=== PATIENT | male | born 1995 ===

== ENCOUNTER → 2016-03-19 | Outpatient (CLI) | payer BC ==
--- NOTE | 2016-03-19 13:43 | DX ---
Left ankle - 3 views Indication: Fell skateboarding. Technique: AP, mortise, and lateral views. Comparison: None Findings: The bones are anatomically aligned. No acute fracture or derangement of the mortise. Latera l soft tissue swelling. Impression: Lateral ankle sprain. No acute fracture.
== END ==
LOC: BMCIMAGING 13:16
PROVIDERS: ATTEND Family Medicine
DX: S93.402A Sprain of unspecified ligament of left ankle, initial encounter (principal); V00.131A Fall from skateboard, initial encounter; Y93.51 Activity, roller skating (inline) and skateboarding